=== PATIENT | female | born 1955 | race Two or more races ===

== ENCOUNTER 2020-07-22 09:57 | Emergency (ER) | payer OTHER ==
[~2020-07-22] VITALS: Ht 160 cm; Wt 59.0 kg
[2020-07-22] MEDS ORDERED: LEVOFLOXACIN500 MG PO (15:39)
== END 2020-07-22 16:12 | disposition home or self-care (01) ==
LOC: ER 09:57
DX: U07.1 COVID-19 (principal); B34.9 Viral infection, unspecified